=== PATIENT | female | born 1975 | race Caucasian/White ===

== ENCOUNTER → 2018-09-17 | Outpatient (CLI) | payer BC ==
[~2018-09-17] MED LIST: 5HYD200C PO; ALPR0.5T PO; AMIN1TAB PO; BUPR300T3 PO; DOCU-109 PO; HYDR-3164 PO; L-THEANINE PO; LACT1CAP8 PO; LIOT5TAB PO; MAGN400C PO; METF10007 PO; OMEG1CAP38 PO; PRED2.5T PO; THYR60TA PO; VALIUM10 MG PO; [UNRECOGNIZED DRUG - CODE] PO; [UNRECOGNIZED DRUG - OTHER] PO; [UNRECOGNIZED DRUG - OTHER] PO; [UNRECOGNIZED DRUG - OTHER] PO; [UNRECOGNIZED DRUG - OTHER] SQ
== END | disposition home or self-care (01) ==
LOC: SURGPAT 16:53
PROVIDERS: ATTEND Neurological Surgery
DX: Z01.818 Encounter for other preprocedural examination (principal); M54.16 Radiculopathy, lumbar region; M48.061 Spinal stenosis, lumbar region without neurogenic claudication
CPT/HCPCS: 36415; 87641

== ENCOUNTER 2018-09-30 10:04 | Day surgery (SDC) | payer BC ==
[~2018-09-30] VITALS: Ht 160 cm; Wt 70.3 kg
--- NOTE | 2018-09-30 06:42 | PREOP HP ---
DATE OF SERVICE: 09/30/2018. DATE OF SURGERY: 09/30/2018. HISTORY OF PRESENT ILLNESS: The patient is a pleasant 42-year-old woman who is having difficulty with low back pain and pain which radiates into her left hip and inguinal region. The problem started on 02/10 spontaneously. She relates her pain was not particularly severe when it began, but it has gradually worsened, and she has intermittent episodes in which she can become excruciatingly severe. She has been using ice and heat. She has had physical therapy multiple times for this problem. She saw Dr. Palomares who operated on the right side at L4-L5 a number of years ago. He referred her to Orthopedic Surgery to evaluate her hips. She did undergo a lumbar MRI scan at this time, which a foraminal disc herniation on L4-L5 on the left was reported. She underwent an extensive hip evaluation and was found to have a labrum tear in the right hip. Her pain is on the left side. Standing and walking help her with her pain. Squatting, sitting and twisting markedly increased the pain in the back, which radiates to the left hip and inguinal region. Oral steroids have helped her. She has had significant difficulties with epidural steroids in the past. PAST MEDICAL HISTORY: Hypothyroidism, PCOS, anxiety. PAST SURGICAL HISTORY: in 2006, right-sided decompression at L4-L5 in 12/2012. FAMILY HISTORY: Diabetes. SOCIAL HISTORY: . Works as a speech and language specialist. She exercises daily with running, yoga, Pilates and cardio. She denies tobacco use. She uses alcohol 1-2 times per week. ALLERGIES: No known drug allergies. CURRENT MEDICATIONS: Metformin, [place] thyroid bioidentical hormone replacement 5HTP. Wellbutrin, liothyronine sodium. REVIEW OF SYSTEMS: A 12-point review of systems was obtained and is noncontributory except for that mentioned above. PHYSICAL EXAMINATION: NEUROSURGERY EXAMINATION: GENERAL APPEARANCE: Alert, pleasant, in no acute distress. HEAD: Normocephalic and atraumatic. SKIN: Warm and dry. Well-healed lumbar incision. MUSCULOSKELETAL: Lumbar paraspinal muscle bulk is normal, restricted range of motion of lumbar spine, [id number] tenderness of the lower lumbar spine with palpation, normal range of motion of the lower extremities bilaterally. EXTREMITIES: No clubbing, cyanosis or edema. NEUROLOGIC: Alert and oriented x3, normal recent and remote memory, strength 5/5 in bilateral lower extremities. Sensory was intact to light touch in bilateral lower extremities. Reflexes are present and symmetric in the lower extremities bilaterally. Negative straight leg raising bilaterally, normal gait. IMAGING: I reviewed a lumbar MRI scan. She has lateral recess and foraminal narrowing on the left side where there does appear to be a small focal spur adjacent to and contact with the left L5 root and lateral recess at L4-L5. There is minimal foraminal narrowing on the left at L3-L4. ASSESSMENT/ PLAN: The patient is having difficulty with low back pain and pain which radiates in the left hip region. She has had physical therapy which is no longer beneficial. She has had significant reactions to epidural steroid injections in the past and does not wish to consider that. She had an extensive evaluation of her hips, which she said has been unrewarding. At this point, I told her that I would be willing to operate at L4-L5 on the left and decompress the left L5 root. I explained to her that the surgery could decompress the L5 root, but whether or not that would translate into significant relief, I was not sure. I do think she has had extensive amounts of conservative measures. At this point, surgery should be considered. I discussed the pros and cons of surgery. She understands and would like to proceed. FLORENCE PRATHER MD DR: DAVID/candice JOB#: [id number] / [id number] JANEEN
[~2018-09-30 10:04] MED LIST changes: +BACITRACIN 50,000 UNIT in IV NORMAL SALINE 1000ML BAG 1,000 ML IRR ONE; +BUPIVAC MPF-EPI 0.5%-1:200000 30 ML VIAL. ONE; -DOCU-109 PO; +GELATIN SPONGE SIZE 100. ONE; -HYDR-3164 PO; +HYDROmorphone 2 MG/ML VIAL IV PRN; +IV RINGERS,LACTATED 1000ML 1,000 ML IV SCH; +KETOROLAC 60 MG/2 ML INJ FOR OR. ONE; +LIDOCAINE 1% PF 2 ML VIAL. ID PRN; +MORPHINE SULFATE 2 MG/ML VIAL. IV PRN; +ONDANSETRON PF 4 MG/2 ML VIAL. IV PRN; +PROCHLORPERAZINE 10 MG/2 ML VIAL. IV PRN; +THROMBIN TOPICAL 20,000 UNIT SPRAY.SYRN KIT TP ONE; +fentaNYL PF VIAL 100 MCG/2 ML VIAL IV PRN
[2018-09-30] MEDS ORDERED: DEXAMETHASONE SOD PHOS 20 MG/5 ML VIAL. ONE (10:24)
[2018-09-30] MEDS ORDERED: ONDANSETRON PF 4 MG/2 ML VIAL. ONE (10:24)
[2018-09-30] MEDS ORDERED: fentaNYL PF VIAL 100 MCG/2 ML VIAL ONE ×2 (10:24→14:11)
[2018-09-30] MEDS ORDERED: PROPOFOL 20 ML IV ONE (10:24)
[2018-09-30] MEDS ORDERED: PHENYLEPHRINE in 0.9% NACL PF 1 MG/10 ML SYRINGE. IV ONE (10:24)
[2018-09-30] MEDS ORDERED: LIDOCAINE 2% PF 5 ML VIAL. ONE (10:24)
[2018-09-30] MEDS ORDERED: ROCURONIUM 50 MG/5 ML VIAL. ONE (10:25)
[2018-09-30] MEDS ORDERED: REMIFENTANIL 2 MG VIAL. IV ONE (10:25)
[2018-09-30] MEDS ORDERED: MIDAZOLAM HCL/PF 2 MG/2 ML VIAL. ONE (10:25)
[2018-09-30 10:33] LABS: U PREG PATIENT NEGATIVE (NEG)
[2018-09-30] MEDS ORDERED: NEOSTIGMINE METHYLSULFATE 5 MG/5 ML SYRINGE. ONE (12:30)
[2018-09-30] MEDS ORDERED: GLYCOPYRROLATE 1 MG/5 ML VIAL. ONE (12:30)
[2018-09-30] MEDS ORDERED: DOCU-109 PO (12:41)
[2018-09-30] MEDS ORDERED: HYDR-3164 PO (12:41)
[2018-09-30] MEDS ORDERED: HYDROCORTISONE SOD SUCC/PF 100 MG/2 ML VIAL. ONE (12:42)
--- NOTE | 2018-09-30 12:42 | DISCH ---
DISCHARGE INSTRUCTIONS Condition on Discharge Condition on Discharge: Stable Activity After Discharge Activity Instructions for Disc: Activity as tolerated, Avoid exertion Other activity instructions: no driving for a week Bathing Instructions: Shower-keep dressing dry Lifting Instructions after Dis: No heavy lifting, No pulling or pushing, Do not lift >10 pounds Diet after Discharge Additional Diet Restrictions: resume home diet Wound Incision Care Wound/Incision Care: Ice to area for comfort Other wound/incision instructi: may remove dresing in 48 hrs if dry then m ay shower, no soaking Contacting the DRShola after DC Call your doctor for: Concerns you may have Follow-Up Follow up with: Dr. Prather's nurse in 2 weeks [phone] FLORENCE PRATHER MD Sep 30, 2018 12:42
[2018-09-30] MEDS ORDERED: PROPOFOL 50 ML IV ONE ×2 (12:48→13:14)
[2018-09-30] MEDS ORDERED: DESFLURANE 61 TO 120 MINUTES IH ONE (13:29)
[2018-09-30] MEDS: fentaNYL PF VIAL 100 MCG/2 ML VIAL IV PRN ×2 (14:15→14:39)
--- NOTE | 2018-09-30 14:26 | OP ---
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 OPERATION PERFORMED: Hemilaminotomy with decompression of dura and nerve root, L4-L5, left. The operation was done with fluoroscopy and microscopic dissection. SURGEON: Davidson Prather M.D. RADIOLOGICAL TECHNICIAN: JACIEL Wade, assisted with the surgery. She assisted with the exposure, the microdecompression as well as the closure. FINDINGS: There was lateral stenosis from hypertrophic facet and thickened ligament, and this was combined with a number of tethering veins, which pulled the dura and the takeoff of the L5 root laterally. OPERATIVE INDICATIONS: The patient is a very pleasant 42-year-old who developed intractable back pain and left hip and inguinal region pain. The problem was severe. She went through considerable amount of conservative measures including several rounds of physical therapy. She saw another surgeon who had operated on the right side at this level a number of years before, and he referred her for orthopedic evaluation of her hips. No significant pathology was found in her left hip. On the lumbar MRI scan, there was lateral recess narrowing with thickened ligament directly over and compressing the L5 root and after considerable discussion with the patient, I related that I was willing to operate upon her at this level and see if this would not give her some relief. I discussed with the surgery and the technique of the operation. She understood. She also understood that she may not improve with the surgery, but she strongly wished to go ahead. DESCRIPTION OF PROCEDURE: Following general endotracheal anesthesia, the patient was positioned prone on the Álvaro table. Lumbar region prepped and draped in standard fashion. LEWIS hose and AV impulse boots were applied for DVT prophylaxis. A microscope was draped. Fluoroscopy was draped and brought into the field. Ancef 2 grams were given less than 1 hour prior to initiation of the surgery. Using fluoroscopic guidance, a midline posterior incision was made, it was taken down to skin and subcutaneous tissue and reflected the paraspinal muscles and placed a retractor, brought in the microscope. I confirmed my position fluoroscopically. I used a high speed air drill to drill a hemilaminotomy. I did perform a partial foraminotomy. I trimmed away thickened ligamentum flavum from medial to lateral and worked to the medial edge of the pedicle. Slightly above this, I removed the very medial portion of the foraminal opening. There was thickened ligamentum flavum and bone, which was compressing down just at and below the disc at the superior aspect of the pedicle and slightly above this, and I trimmed this material away, decompressed the root. There were, however, a number of veins, which were tethering the root and pulling the root laterally in this location, and I gently retracted the dura and root medially with a micro nerve root retractor and incised these with an arachnoid knife. I worked diligently, maintained excellent hemostasis and as I worked, I was able to fully decompress the entire region. The disc was very firm, no discectomy was warranted. At this point I had an excellent decompression of the dura and the exiting root. I irrigated copiously with antibiotic solution. I then assured myself of perfect hemostasis, removing the retractor, irrigated and assured myself of no muscle bleeding. I closed the fascia with absorbable sutures in subcutaneous tissue in similar fashion, The skin was closed with 4-0 subcuticular stitch. The surgery went very well. The patient awakened uneventfully. I was quite pleased with the surgery. DAVIDSON PRATHER MD DR: DAVID/candice JOB#: [id number] / [id number] JANEEN
[2018-09-30] MEDS ORDERED: HYDROcodone/APAP 5/325MG 1 TAB TABLET PO ONE ×2 (14:45)
[2018-09-30 15:25] VITALS: BP 127/63
--- NOTE | 2018-10-05 15:06 | PATHOLOGY ---
[facility] Accession Number: [id number] . 01 Material submitted: . vertebral column - LUMBAR DECOMPRESSION . 01 Clinical history: . Lumbar stenosis, back pain, radiculopathy . 02 Diagnosis: "Lumbar decompression", removal: - Fragments of unremarkable fibrous tissue, skeletal muscle, synovium, and bone. . (SKM:mml; 10/05/2018) QLM/10/05/2018 . 02 Electronically signed: . Ziyad Kolb MD, Pathologist NPI- [id number] . 01 Gross description: . Received in formalin labeled "Isaías, Shi, lumbar decompression," are several pieces of glistening, fibrous tissue measuring 3.9 x 2.1 x 0.8 cm in aggregate dimensions, containing small fragments of possible bone. The tissue is submitted representatively in cassette A1, following decalcification. (TSD; 10/01/2018) TOB/TOB . 02 Pathologist provided ICD-10: M48.061, M54.9, M54.10 . 02 CPT . 712212, [id number] Specimen Comment: A courtesy copy of this report has been sent to Specimen Comment: [phone], . Specimen Comment: Report sent to / DR MORALES Performed at: 01 [facility] [address], [place] [id number] MD Rasheed Mosley MD Phone: [phone] Performed at: 02 [facility] [address], [place] [id number] MD Nader Acevedo MD Phone: [phone]
--- NOTE | 2018-10-10 19:23 | RAD ---
FLUOROSCOPY < 1 HR History: Lumbar microdecompression Comparison: None. Findings: 4 low resolution intraprocedural views of the lumbar spine are submitted. Interpretation is made of submitted images only, exam performed by different physician. There is no reported fluoroscopy time available. Images demonstrate initial metallic instrument posteriorly in the back near the L4-5 level, another instrument on second image near the L4 level posteriorly, third image demonstrated a posterior retraction device with instrument posterior to L5. Last image demonstrates instrument posterior to the L4-5 level. Impression: 1. Intraprocedural views of the lumbar spine as stated Electronically signed by: Deandre Tripp MD (10/10/2018 7:20 PM) [facility]
== END 2018-09-30 16:31 | disposition home or self-care (01) ==
LOC: SURG 10:04 → EDUNIT# 11:30 → SURG 16:31
PROVIDERS: ATTEND Neurological Surgery
DX: M48.061 Spinal stenosis, lumbar region without neurogenic claudication (principal); E03.9 Hypothyroidism, unspecified; E28.2 Polycystic ovarian syndrome; F41.9 Anxiety disorder, unspecified; Z98.890 Other specified postprocedural states; Z83.3 Family history of diabetes mellitus; Z72.89 Other problems related to lifestyle; Z79.84 Long term (current) use of oral hypoglycemic drugs; Z79.899 Other long term (current) drug therapy; Z91.048 Other nonmedicinal substance allergy status
CPT/HCPCS: 63047; 76000; 81025; 88304; 88311; 97161; A7015; J1100; J1885; J2001; J2250; J2370; J2405; J2704; J2710; J3010; J3490; J7030; J1720